=== PATIENT | male | born 1990 | race African-American/Black ===

== ENCOUNTER 2020-12-28 18:55 | Emergency (ER) | payer OTHER ==
[~2020-12-28] VITALS: Ht 203.2 cm; Wt 126.5 kg
--- NOTE | 2020-12-28 19:29 | NUR ---
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
--- NOTE | 2020-12-28 19:44 | NUR ---
PT STATES HE DROPPED A 45LBS WEIGHT ON CHEST WHILE LIFTING AT THE GYM, HAPPENED AT 530PM.
[2020-12-28] MEDS ORDERED: KETOROLAC 30 MG/1 ML ONE (19:45)
[2020-12-28] MEDS ORDERED: KETOROLAC 30 MG/1 ML IM ONE (20:00)
[2020-12-28 20:50] VITALS: BP 118/68
== END 2020-12-28 20:52 | disposition home or self-care (01) ==
LOC: ED 20:45
DX: S20.219A Contusion of unspecified front wall of thorax, initial encounter (principal); X58.XXXA Exposure to other specified factors, initial encounter; Y93.9 Activity, unspecified; Y92.89 Other specified places as the place of occurrence of the external cause; Y99.8 Other external cause status
CPT/HCPCS: 71045; 96372; 99283; J1885

== ENCOUNTER 2021-02-22 06:07 | Day surgery (SDC) | payer OTHER ==
[~2021-02-22] VITALS: Ht 204.5 cm; Wt 128.5 kg
[2021-02-22 06:42] VITALS: BP 128/82
[2021-02-22] MEDS ORDERED: SODIUM CHLORIDE 0.9% 1,000 ML IV SCH (07:00)
[2021-02-22 08:06] LABS: INTERNATIONAL NORMALIZED RATIO 1.02 (0.93-1.1); PROTHROMBIN TIME 10.9 Seconds (9.6-11.5)
[2021-02-22] MEDS ORDERED: FENTANYL PF 100 MCG/2ML ONE ×2 (08:24)
[2021-02-22] MEDS ORDERED: FLUMAZENIL 0.1 MG/1 ML, 5ML ONE (08:24)
[2021-02-22] MEDS ORDERED: MIDAZOLAM 1 MG/ML, 5ML ONE (08:24)
[2021-02-22] MEDS ORDERED: NALOXONE 1 MG/ML, 2ML ONE (08:24)
== END 2021-02-22 11:20 | disposition home or self-care (01) ==
LOC: OUT 06:07 → EDSTATUS 08:00 → OUT 11:20
PROVIDERS: ATTEND Internal Medicine Nephrology
DX: N17.9 Acute kidney failure, unspecified (principal); N18.31 Chronic kidney disease, stage 3a
CPT/HCPCS: 36415; 50200; 77012; 85610; 88300; 99156; 99157; J2250; J3010; J7030; J2310